=== PATIENT | female | born 1960 | race Caucasian/White ===

== ENCOUNTER → 2023-12-06 12:55 | Outpatient (REF) | payer OTHER, SELFPAY | LOC: RAD 12:55 | PROVIDERS: ATTENDING PHYSICIAN Obstetrics & Gynecology; FAMILY PHYSICIAN Family Medicine | DX: D25.9 Leiomyoma of uterus, unspecified (principal); Z80.41 Family history of malignant neoplasm of ovary | CPT/HCPCS: 76830; 76856 ==

== ENCOUNTER 2024-01-17 06:49 | Day surgery (SDC) | payer OTHER, SELFPAY ==
[2024-01-11 08:46] LABS: % Basophils 1.1 % (0-2); % Eosinophils 3.6 % (0-6); % Immature Granulocytes 0.4 % (0-0.5); % Lymphocytes 37.5 % (20.5-51.1); % Monocytes 11.4 % (1.7-9.3); Absolute Eosinophils 0.1 10^3/uL (0-0.7); Absolute Lymphocytes 1.1 10^3/uL (1.2-3.4); Absolute Monocytes 0.3 10^3/uL (0.1-0.6); Absolute Neutrophils 1.3 10^3/uL (1.4-6.5); Hematocrit 40.8 % (37.0-47.0); Hemoglobin 13.5 g/dL (12.0-16.0); Mean Corp Hgb Conc. 33.1 g/dL (33.0-37.0); Mean Corpuscular Hgb 32.2 pg (27.0-31.0); Mean Corpuscular Volume 97.4 fL (81.0-99.0); Mean Platelet Volume 9.3 fL (7.4-10.4); Nucleated Red Blood Cells % 0 %; Platelet Count 221 10^3/uL (130-400); Red Blood Cell Count 4.19 10^6/uL (4.20-5.40); Red Cell Dist. Width 11.9 % (11.5-14.5); White Blood Cell Count 2.8 10^3/uL (4.8-10.8)
[2024-01-11 09:07] LABS: Blood Urea Nitrogen 11 mg/dl (7-17); Calcium 9.1 mg/dl (8.4-10.2); Carbon Dioxide 31 mmol/L (22-30); Chloride 101 mmol/L (98-107); Glucose 99 mg/dl (70-99); Potassium 4.2 mmol/L (3.5-5.1); Sodium 137 mmol/L (135-145); eGFR > 60.00
[2024-01-11 12:13] VITALS: BMI 17.9
--- NOTE | 2024-01-13 13:17 | PTCARENOTE ---
Patients 01/10 WBC 2.8, Constance @ Dr. Metzger' office notified
[2024-01-17] VITALS (8 sets, daily range): BP systolic 102–140; BP diastolic 67–84; BMI 17.9
[2024-01-17] MEDS: NORMOSOL-R 1000 IV (09:57)
--- NOTE | 2024-01-17 12:16 | W.SUR.PREOP ---
Pre-Operative Surgical Note
-
I have examined this patient prior to the performance of the scheduled procedure.
The patient's condition is unchanged from the time of the current History and
Physical and the patient is able to undergo the scheduled procedure.
Eve was seen by me approx 10:30 am today and reviewed and confirmed consents.
--- NOTE | 2024-01-17 12:17 | W.IMMPOSTOP ---
Surgical Immed Post Op Note
-
Primary Surgeon: Camille Dangelo DO
Assisting Surgeon: none
Pre-op Diagnosis: Endometrial fluid, endometrial mass 6mm on ultrasound; family hx ovarian cancer
Post-op Diagnosis: same; Atrophic endometrium, questionable small submucosal fibroid minimally evident at fundus
Procedure Performed: Diagnostic hysteroscopy D&C myosure
Anesthesia Type: general LMA Dr. Durbin
Specimen / Cultures: 1. Endocervical curettings 2. endometrial curettings
Estimated Blood Loss: 5ml
Fluid deficit: 15ml NSS
Complications: superficial laceration of cervix from tenaculum-sutured with 3-0 vicryl.
Operative Findings: Small, smooth cervix, normal endocervical canal. Small uterus, sounded to 4cm. Endoemtrial cavity with atrophic endometrium. Bilateral tubal ostia seen. Small approx 5-6mm suggestion of submucosal fibroid-biopsies with myosure.
Minimal tissue able to be collected with myosure or with sharp curettage. Used endometrial aspirator at end of case to try to obtain tissue sample.
Counts correct times 2.
Stable to recovery.
== END 2024-01-17 14:07 | disposition home or self-care (01) ==
LOC: SDS 06:49
PROVIDERS: ATTENDING PHYSICIAN Obstetrics & Gynecology; FAMILY PHYSICIAN Family Medicine
DX: N85.8 Other specified noninflammatory disorders of uterus (principal)
CPT/HCPCS: 58558; 88305; 36415; 80048; 85025; 86850; 86900; 86901; 93005

== ENCOUNTER → 2024-04-21 15:36 | Outpatient (REF) | payer OTHER, SELFPAY | LOC: RAD 15:36 | PROVIDERS: ATTENDING PHYSICIAN Student in an Organized Health Care Education/Training Program | DX: R06.02 Shortness of breath (principal); Z87.01 Personal history of pneumonia (recurrent); R05.3 Chronic cough | CPT/HCPCS: 71046 ==

== ENCOUNTER → 2024-06-16 08:22 | Outpatient (REF) | payer OTHER, SELFPAY | LOC: RST 08:22 | PROVIDERS: ATTENDING PHYSICIAN Internal Medicine Critical Care Medicine; FAMILY PHYSICIAN Family Medicine | DX: R13.10 Dysphagia, unspecified (principal) | CPT/HCPCS: 74230; 92611 ==

== ENCOUNTER → 2024-12-08 07:42 | Outpatient (REF) | payer OTHER, SELFPAY | LOC: WDC 07:42 | PROVIDERS: ATTENDING PHYSICIAN Obstetrics & Gynecology; FAMILY PHYSICIAN Family Medicine | DX: R92.2 Inconclusive mammogram (principal) | CPT/HCPCS: 76641 ==

== ENCOUNTER → 2025-06-07 13:06 | Outpatient (REF) | payer OTHER, SELFPAY | LOC: HWRAD 13:06 | PROVIDERS: ATTENDING PHYSICIAN Internal Medicine Critical Care Medicine; FAMILY PHYSICIAN Family Medicine | DX: R13.10 Dysphagia, unspecified (principal) | CPT/HCPCS: 71250 ==